=== PATIENT | female | born 1970 | race Caucasian/White ===

== ENCOUNTER → 2018-07-17 | Outpatient (CLI) | payer OTHER ==
[~2018-07-17] MED LIST: ATENOLOL 50MG T50 M1 PO; CIPRO500 MG PO; HYDROCODONE-AP1 EAC6 PO; IBUPROFEN 800800 M1 PO; LISINOPRIL10 MG PO; NORCO 5-325 TA1 EACH PO; ONDANSETRON HCL4 M2 PO; PEPCID20 MG PO; PERCOCET 5-3251 EACH PO; ROBAXIN 750 MG750 M1 PO; SILVADENE20 GM TP; VICODIN 5-5001 EACH PO
== END ==
LOC: M.RAD 10:57
DX: Z12.31 Encounter for screening mammogram for malignant neoplasm of breast (principal)